=== PATIENT | female | born 1970 | race African-American/Black ===

== ENCOUNTER 2019-04-12 09:35 | Emergency (ER) | payer SELFPAY ==
[~2019-04-12] VITALS: Ht 154.9 cm; Wt 72.0 kg
[2019-04-12 09:45] VITALS: BP 153/76
[2019-04-12] MEDS ORDERED: IPRATRPIUM/ALBUTEROL 0.5/2.5MG 3 ML NEBU. NEB ONE (10:15)
--- NOTE | 2019-04-12 10:26 | PHYS DOC ---
Past Medical History Past Medical History: Asthma, Diabetes-Type II, High Cholesterol, Hypertension (ISAIAS BALLESTEROS APRN) Past Surgical History: , Hysterectomy, Other Additional Past Surgical Histo: hernia (ISAIAS BALLESTEROS APRN) Smoking: Less than 1pk/day Alcohol Use: Occasionally (ISAIAS BALLESTEROS APRN) Adult General Chief Complaint Chief Complaint: COUGH HPI HPI Patient is a 48 year old AA female who presents to the emergency department with complaints of a cough, wheezing, body aches, fatigue, and tactile fever that began 3 days ago. Patient denies any vomiting, diarrhea, abdominal pain, chest pain, palpitations, ear pain, or sore throat. She states she has felt nauseated at times. Patient states that her grandchildren recently were diagnosed with influenza. She reports a history of smoking but states she has not smoked in the last week. Patient states that she took a breathing treatment last night but reports that the breathing treatment only helps for a few hours and then her wheezing and shortness of breath returns. She currently denies any pain. All other ROS is neg unless otherwise noted in HPI. (ISAIAS BALLESTEROS APRN) Review of Systems Review of Systems See Above (ISAIAS BALLESTEROS APRN) Current Medications Current Medications Current Medications Medications (Trade) Dose Ordered Sig/Zeynep Start Time Stop Time Status Last Admin Dose Admin Albuterol/ Ipratropium (Duoneb) 3 ml 1X ONCE 04/12/19 10:15 04/12/19 10:16 DC 04/12/19 10:26 3 ML (CY GUTIERREZ DO) Allergies Allergies Allergies Coded Allergies Type Severity Reaction Last Updated Verified No Known Drug Allergies 04/12/19 No (CY GUTIERREZ DO) Physical Exam Physical Exam See Above Constitutional: Well developed, well nourished, no acute distress, ill appearance HENT: Normocephalic, atraumatic, bilateral external ears normal, bilateral TMs normal, posterior pharynx normal oropharynx moist, nose congested with erythema and edema of the nasal turbinates bilaterally Eyes: PERRLA, conjunctiva injected bilaterally, no discharge. [] Neck: Normal range of motion, no stridor. [] Cardiovascular:Heart rate regular rhythm, no murmur [] Lungs & Thorax: Respirations even and unlabored, no retractions, no respiratory distress, expiratory wheezes throughout all henriquez Skin: Warm, dry, no erythema, no rash. [] Back: No tenderness Extremities: No cyanosis, ROM intact Neurologic: Alert and oriented X 3, no focal deficits noted. [] Psychologic: Affect normal, judgement normal, mood normal. (ISAIAS BALLESTEROS APRN) Current Patient Data Vital Signs Vital Signs Date Time Temp Pulse Resp B/P (MAP) Pulse Ox O2 Delivery O2 Flow Rate FiO2 04/12/19 10:26 99 Room Air 04/12/19 09:45 98.9 92 20 153/76 (101) 98.9 (CY GUTIERREZ DO) EKG EKG [] (ISAIAS BALLESTEROS APRN) Radiology/Procedures Radiology/Procedures pt was given a duoneb tx in the ER, reported feeling better after this medicaton, lung sounds improved with few scattered wheezes after treatment. (ISAIAS BALLESTEROS APRN) Course & Med Decision Making Course & Med Decision Making Pertinent Labs and Imaging studies reviewed. (See chart for details) [] (ISAIAS BALLESTEROS APRN) Dragon Disclaimer Dragon Disclaimer This electronic medical record was generated, in whole or in part, using a voice recognition dictation system. (ISAIAS BALLESTEROS APRN) Departure Departure Impression: Primary Impression: Wheezing on auscultation Additional Impression: Flu-like symptoms Disposition: HOME, SELF-CARE Condition: STABLE Referrals: UNKNOWN PCP NAME (PCP) Patient Instructions: Influenza, Adult, [id number] Additional Instructions: Continue using your home nebulizer treatments as prescribed. Fill the prescriptions and take as directed. Check your blood sugar while on prednisone this medication will elevate your blood sugar. Alternate Tylenol and ibuprofen as needed for fever. Increase clear fluids and rest. Diet as tolerated. Recommend use of [id number] flu medications as needed for relief of your symptoms. Follow up with your primary care doctor if symptoms persist, return to the ER symptoms worsen. Scripts Prednisone (PREDNISONE) 50 Mg Tablet 1 TAB PO DAILY for 5 Days, #5 TAB 0 Refills Prov: ISAIAS BALLESTEROS APRN 04/12/19 Oseltamivir Phosphate (TAMIFLU) 75 Mg Capsule 1 CAP PO BID for 5 Days, #10 CAP 0 Refills Prov: ISAIAS BALLESTEROS HAND SPRAYER 04/12/19 Attending Signature Attending Signature I have reviewed the PA/CREDIT COUNSELOR's note and plan of care. I was available for consultation as needed during the patient's visit in the emergency department. I agree with the clinical impression, plan, and disposition. (CY GUTIERREZ DO) Problem Qualifiers ISAIAS BALLESTEROS HAND SPRAYER Apr 12, 2019 10:26 CY GUTIERREZ DO Apr 15, 2019 14:40
[2019-04-12] MEDS ORDERED: PRED50TA PO (10:30)
[2019-04-12] MEDS ORDERED: OSEL75CA PO (10:30)
== END 2019-04-12 10:45 | disposition home or self-care (01) ==
LOC: ER 09:35
DX: R50.9 Fever, unspecified (principal); R06.02 Shortness of breath; R11.0 Nausea; R05 Cough; F17.200 Nicotine dependence, unspecified, uncomplicated; J45.909 Unspecified asthma, uncomplicated; E11.9 Type 2 diabetes mellitus without complications; E78.00 Pure hypercholesterolemia, unspecified; I10 Essential (primary) hypertension; Z90.710 Acquired absence of both cervix and uterus; Z98.890 Other specified postprocedural states
CPT/HCPCS: 94640; 99283; J7620

== ENCOUNTER 2019-08-07 08:55 | Emergency (ER) | payer SELFPAY ==
[~2019-08-07] VITALS: Ht 154.9 cm; Wt 70.9 kg
[~2019-08-07 08:55] MED LIST: OSEL75CA PO; PRED50TA PO
[2019-08-07] MEDS ORDERED: IPRATRPIUM/ALBUTEROL 0.5/2.5MG 3 ML NEBU. NEB ONE (09:30)
[2019-08-07] MEDS ORDERED: methylPREDNISolone SOD SUCC PF 125 MG/2 ML VIAL. ONE (09:44)
[2019-08-07] MEDS ORDERED: methylPREDNISolone SOD SUCC PF 125 MG/2 ML VIAL. IV ONE (09:45)
[2019-08-07 09:46] LABS: BASO # 0.1 x10^3/uL (0.0-0.2); BASO % 1 % (0-3); EOS # 0.2 x10^3/uL (0.0-0.7); EOS % 3 % (0-3); HEMOGLOBIN 12.7 g/dL (12.0-15.5); LYMPH # 1.5 x10^3/uL (1.0-4.8); LYMPH % 18 % (24-48); MEAN CORPUSCULAR HEMOGLOBIN 31 pg (25-35); MEAN CORPUSCULAR HGB CONC 34 g/dL (31-37); MEAN CORPUSCULAR VOLUME 92 fL (79-100); MONO # 0.4 x10^3/uL (0.0-1.1); MONO % 5 % (0-9); NEUT # 5.9 x10^3/uL (1.8-7.7); NEUT % 74 % (31-73); PLATELET COUNT 188 x10^3/uL (140-400); RED BLOOD COUNT 4.12 x10^6/uL (3.50-5.40)
--- NOTE | 2019-08-07 09:51 | RAD ---
CHEST AP ONLY Clinical indications: Reason: shortness of breath, ASTHMA COMPARISON: None available. Findings: No acute lung infiltrate or pleural effusion or pulmonary edema or lung mass or pneumothorax is seen. The heart size, pulmonary vasculature, mediastinum and both catherine are unremarkable. Scoliosis is seen. Impression: No acute radiographic abnormality is seen. Electronically signed by: Jules Smith MD (08/07/2019 9:48 AM) [id number]
[2019-08-07 09:57] LABS: CALCIUM 8.9 mg/dL (8.5-10.1); CREATININE 0.7 mg/dL (0.6-1.0); GFR 106.7; POTASSIUM 3.8 mmol/L (3.5-5.1)
[2019-08-07 10:02] LABS: ALBUMIN 3.8 g/dL (3.4-5.0); ALBUMIN/GLOBULIN RATIO 1.1 (1.0-1.7); TOTAL BILIRUBIN 0.4 mg/dL (0.2-1.0); TOTAL PROTEIN 7.3 g/dL (6.4-8.2)
--- NOTE | 2019-08-07 10:42 | PHYS DOC ---
Past Medical History Past Medical History: Asthma, Diabetes-Type II, High Cholesterol, Hypertension Past Surgical History: , Hysterectomy, Other Additional Past Surgical Histo: hernia Smoking Status: Current Some Day Smoker Alcohol Use: Rarely General Adult EDM: Chief Complaint: SHORTNESS OF BREATH HPI: HPI: Patient is a 49 year old female presenting to the ED with a chief complaint of shortness of breath. Patient states that she has a history of asthma, diabetes, high blood pressure high cholesterol. Patient does say that she is an active smoker. Patient states that the symptoms have been going on since yesterday. Patient states that she has used her breathing treatment at home but this has not helped. Patient denies fever, chills, nausea or vomiting. Review of Systems: Review of Systems: Constitutional: Denies fever or chills. [] Eyes: Denies change in visual acuity. [] HENT: Denies nasal congestion or sore throat. [] Respiratory: Complains of wheezing and shortness of breath Cardiovascular: Denies chest pain or edema. [] GI: Denies abdominal pain, nausea, vomiting, bloody stools or diarrhea. [] : Denies dysuria. [] Musculoskeletal: Denies back pain or joint pain. [] Integument: Denies rash. [] Neurologic: Denies headache, focal weakness or sensory changes. [] Endocrine: Denies polyuria or polydipsia. [] Lymphatic: Denies swollen glands. [] Psychiatric: Denies depression or anxiety. [] Heart Score: Risk Factors: Risk Factors: DM, Current or recent (<one month) smoker, HTN, HLP, family his tory of CAD, obesity. Risk Scores: Score 0 - 3: 2.5% MACE over next 6 weeks - Discharge Home Score 4 - 6: 20.3% MACE over next 6 weeks - Admit for Clinical Observation Score 7 - 10: 72.7% MACE over next 6 weeks - Early Invasive Strategies Current Medications: Current Medications Medications (Trade) Dose Ordered Sig/Zeynep Start Time Stop Time Status Last Admin Dose Admin Albuterol/ Ipratropium (Duoneb) 3 ml 1X ONCE 08/07/19 09:30 08/07/19 09:32 DC 08/07/19 10:13 3 ML Methylprednisolone Sodium Succinate (SOLU-Medrol 125MG VIAL) 125 mg STK-MED ONCE 08/07/19 09:44 08/07/19 09:44 DC Allergies: Allergies: Allergies Coded Allergies Type Severity Reaction Last Updated Verified No Known Drug Allergies 04/12/19 No Physical Exam: PE: Constitutional: Well developed, well nourished, no acute distress, non-toxic appearance. [] HENT: Normocephalic, atraumatic, bilateral external ears normal, oropharynx moist, no oral exudates, nose normal. [] Eyes: PERRLA, EOMI, conjunctiva normal, no discharge. [] Neck: Normal range of motion, no tenderness, supple, no stridor. [] Cardiovascular:Heart rate regular rhythm, no murmur [] Lungs & Thorax: Bilateral wheezing Abdomen: Bowel sounds normal, soft, no tenderness, no masses, no pulsatile masses. [] Skin: Warm, dry, no erythema, no rash. [] Back: No tenderness, no CVA tenderness. [] Extremities: No tenderness, no cyanosis, no clubbing, ROM intact, no edema. [] Neurologic: Alert and oriented X 3, normal motor function, normal sensory function, no focal deficits noted. [] Psychologic: Affect normal, judgement normal, mood normal. [] Current Patient Data: Labs: Laboratory Tests Test 08/07/19 09:35 White Blood Count 8.0 x10^3/uL (4.0-11.0) Red Blood Count 4.12 x10^6/uL (3.50-5.40) Hemoglobin 12.7 g/dL (12.0-15.5) Hematocrit 38.0 % (36.0-47.0) Mean Corpuscular Volume 92 fL (79-100) Mean Corpuscular Hemoglobin 31 pg (25-35) Mean Corpuscular Hemoglobin Concent 34 g/dL (31-37) Red Cell Distribution Width 14.0 % (11.5-14.5) Platelet Count 188 x10^3/uL (140-400) Neutrophils (%) (Auto) 74 % (31-73) H Lymphocytes (%) (Auto) 18 % (24-48) L Monocytes (%) (Auto) 5 % (0-9) Eosinophils (%) (Auto) 3 % (0-3) Basophils (%) (Auto) 1 % (0-3) Neutrophils # (Auto) 5.9 x10^3/uL (1.8-7.7) Lymphocytes # (Auto) 1.5 x10^3/uL (1.0-4.8) Monocytes # (Auto) 0.4 x10^3/uL (0.0-1.1) Eosinophils # (Auto) 0.2 x10^3/uL (0.0-0.7) Basophils # (Auto) 0.1 x10^3/uL (0.0-0.2) Sodium Level 143 mmol/L (136-145) Potassium Level 3.8 mmol/L (3.5-5.1) Chloride Level 106 mmol/L (98-107) Carbon Dioxide Level 25 mmol/L (21-32) Anion Gap 12 (6-14) Blood Urea Nitrogen 11 mg/dL (7-20) Creatinine 0.7 mg/dL (0.6-1.0) Estimated GFR (Cockcroft-Gault) 106.7 BUN/Creatinine Ratio 16 (6-20) Glucose Level 168 mg/dL (70-99) H Calcium Level 8.9 mg/dL (8.5-10.1) Total Bilirubin 0.4 mg/dL (0.2-1.0) Aspartate Amino Transferase (AST) 15 U/L (15-37) Alanine Aminotransferase (ALT) 23 U/L (14-59) Alkaline Phosphatase 98 U/L (46-116) Troponin I Quantitative < 0.017 ng/mL (0.000-0.055) Total Protein 7.3 g/dL (6.4-8.2) Albumin 3.8 g/dL (3.4-5.0) Albumin/Globulin Ratio 1.1 (1.0-1.7) Laboratory Tests 08/07/19 09:35 Laboratory Tests 08/07/19 09:35 Vital Signs: Vital Signs Date Time Temp Pulse Resp B/P (MAP) Pulse Ox O2 Delivery O2 Flow Rate FiO2 08/07/19 10:10 95 Room Air 08/07/19 09:07 98.1 98 20 152/89 (110) 98.1 EKG: EKG: [] Radiology/Procedures: Radiology/Procedures: Order chest x-ray. Impression: Chest x-ray shows no acute disease. Course & Med Decision Making: Course & Med Decision Making Pertinent Labs and Imaging studies reviewed. (See chart for details) Labs are within normal limits. Troponin is negative. Chest x-ray does not show any acute disease. Patient is given DuoNeb treatments as well as IV Solu-Medrol. We will recheck patient's breathing. On recheck patient states that she has feeling much better with her breathing. States that she has mild wheezing. Patient states that she is comfortable to be discharged home. Patient was discharged home on oral steroids. Discussed results and plan of care with patient. Patient is instructed to follow up with PCP in one to 2 days. Appropriate discharge instructions given to patient to return to the ED or to seek immediate medical evaluation. Patient is instructed to return to the ED if symptoms worsen or if any concerns. Dragon Disclaimer: Maria Del Rosario Disclaimer: This electronic medical record was generated, in whole or in part, using a voice recognition dictation system. Departure Departure Impression: Primary Impression: Asthma exacerbation in COPD Disposition: 01 HOME, SELF-CARE Condition: IMPROVED Referrals: UNKNOWN PCP NAME (PCP) Patient Instructions: Asthma, Adult Additional Instructions: Please return to the ER if symptoms worsen or if any concerns. Please follow-up with PCP in 1 to 2 days. Please take prescription as prescribed. Scripts Prednisone (PREDNISONE) 20 Mg Tablet 2 TAB PO DAILY for 5 Days, #10 TAB Prov: RISA CHANEL DO 08/07/19 RISA CHANEL DO August 07, 2019 10:41
[2019-08-07 11:34] VITALS: BP 168/87
[2019-08-07] MEDS ORDERED: PRED20TA PO (11:49)
== END 2019-08-07 11:58 | disposition home or self-care (01) ==
LOC: ER 08:55
DX: J44.9 Chronic obstructive pulmonary disease, unspecified (principal); R06.02 Shortness of breath; E11.9 Type 2 diabetes mellitus without complications; E78.00 Pure hypercholesterolemia, unspecified; I10 Essential (primary) hypertension; F17.200 Nicotine dependence, unspecified, uncomplicated; Z90.710 Acquired absence of both cervix and uterus; Z98.890 Other specified postprocedural states
CPT/HCPCS: 36415; 71045; 80053; 84484; 85025; 94640; 96374; 99285; J2930